=== PATIENT | female | born 1970 | race Caucasian/White ===

== ENCOUNTER → 2023-08-16 15:04 | Outpatient (REF) | payer OTHER, SELFPAY | LOC: HWWDC 15:04 | PROVIDERS: ATTENDING PHYSICIAN Obstetrics & Gynecology; FAMILY PHYSICIAN Nurse Practitioner Adult Health | DX: Z12.31 Encounter for screening mammogram for malignant neoplasm of breast (principal) | CPT/HCPCS: 77063; 77067 ==

== ENCOUNTER → 2023-08-26 11:23 | Outpatient (REF) | payer OTHER, SELFPAY | LOC: HWRAD 11:23 | PROVIDERS: ATTENDING PHYSICIAN Obstetrics & Gynecology; FAMILY PHYSICIAN Family Medicine | DX: N95.0 Postmenopausal bleeding (principal) | CPT/HCPCS: 76830; 76856 ==

== ENCOUNTER → 2023-08-29 09:04 | Outpatient (REF) | payer OTHER, SELFPAY | LOC: WDC 09:04 | PROVIDERS: ATTENDING PHYSICIAN Obstetrics & Gynecology; FAMILY PHYSICIAN Nurse Practitioner Adult Health | DX: R92.8 Other abnormal and inconclusive findings on diagnostic imaging of breast (principal) | CPT/HCPCS: 76642 ==

== ENCOUNTER → 2023-09-14 13:47 | Outpatient (REF) | payer OTHER, SELFPAY | LOC: WDC 13:47 | PROVIDERS: ATTENDING PHYSICIAN Registered Nurse | DX: N64.4 Mastodynia (principal) | CPT/HCPCS: 76642 ==

== ENCOUNTER → 2024-03-13 12:54 | Outpatient (REF) | payer SELFPAY | LOC: HWRAD 12:54 | PROVIDERS: ATTENDING PHYSICIAN Registered Nurse | DX: E78.2 Mixed hyperlipidemia (principal) | CPT/HCPCS: 75571 ==

== ENCOUNTER → 2024-05-15 09:08 | Outpatient (REF) | payer OTHER, SELFPAY | LOC: RCS 09:08 | PROVIDERS: ATTENDING PHYSICIAN Pediatrics | DX: I25.10 Atherosclerotic heart disease of native coronary artery without angina pectoris (principal) | CPT/HCPCS: 93017; 93350 ==

== ENCOUNTER 2024-06-26 13:45 | Emergency (ER) | payer SELFPAY ==
[2024-06-26 13:50] VITALS: BP 164/108
--- NOTE | 2024-06-26 14:13 | ED.GENMED ---
History of Present Illness
General
Chief Complaint: Head Injury
Source: patient
Exam Limitations: none
Time Seen by Provider: 06/26/24 14:06
Nursing documentation reviewed up to this point in time: agreed with
History of Present Illness
History of Present Illness:
Patient is a 53-year-old female who presents to the ER for evaluation. Patient reports this morning she was bending over and hit the top of her head on a car door. She denies loss of consciousness. She did feel woozy afterward however denies
nausea vomiting headache. She does report that her head feels sore. She is not on blood thinners. Denies any neck pain. No other complaints.
Review of Systems
Review of Systems
Allergies reviewed?: Yes
All Other Systems: ROS reviewed and negative except as documented in HPI and ROS
Constitutional: Reports no symptoms; Denies fever, fatigue or chills
Respiratory: Reports no symptoms
Cardiac: Reports no symptoms
ABD/GI: Denies nausea or vomiting
Musculoskeletal: Reports no symptoms and other (head feels sore ); Denies neck pain or back pain
Skin: Reports no symptoms
Neurological: Reports other (no loc ); Denies dizzy, headache or numbness
Psychiatric: Reports no symptoms
Phy Exam
General Physical Exam
General Presentation: no apparent distress
General age: appears stated age
General Skin: warm and dry
General Habitus: normal
General Mental: alert
General Hydration: appears well hydrated
Eye Exam
Eye Exam: PERRL and EOMI
Eye Exam General: PERRL: bilateral and EOM intact: bilateral
Pupil Exam: Bilateral: round and reactive
Neurological Exam
Neurological Exam: alert and oriented x3
Musculoskeletal Exam
Musculoskeletal Exam: full ROM and other (no step offs to scalp no hematoma no abrasions )
Skin Exam
Skin Exam: normal color and warm/dry
Psychiatric Exam
Psychiatric Exam: normal mood/affect
Course
Orders/Labs/Results
Orders:
Orders
06/26/24 13:54
CT Head W/o Iv Contrast Urgent
Comment:
Reason For Exam: hit on head by car door
06/26/24 14:14
Vital Signs- Treatment ONCE
Frequency: Once
Vital Signs
Initial and Last Documented VS:
Initial Vital Signs
Temp Pulse Resp BP Pulse Ox
98.2 F 92 16 164/108 100
06/26/24 13:50 06/26/24 13:50 06/26/24 13:50 06/26/24 13:50 06/26/24 13:50
Last Documented Vital Signs
Temp Pulse Resp BP Pulse Ox
98.2 F 92 18 137/84 100
06/26/24 13:50 06/26/24 13:50 06/26/24 15:03 06/26/24 15:03 06/26/24 13:50
MDM/Problems Addressed
Differential Diagnosis Includes:
Not limited to skull fracture, less likely intracranial injury
MDM/Problems Addressed:
Symptoms are likely contusion.
patient is in no acute distress no headache or nausea vomiting now no palpable step-offs. No blood thinners. Leg contusion. Plan for discharge home with CAT scan negative.
*Pulse Oximetry
Patient hypoxic: no
*Critical Care Note
Total Time (30-74mins, 75-104mins- exclusive of procedures): Not Applicable
ED Attending Note
-
Portions of this chart may have been created with voice recognition software.� Occasional wrong word or��sound alike� substitutions may have occurred due to the inherent limitations of voice recognition software.
Discharge Plan
Departure
Patient Disposition: Home (Routine Discharge)
Date of Disposition: 06/26/24
Time of Disposition: 15:18
Patient with high blood pressure during this ER visit?: Yes
Discharge Problem:
Head injury, acute
Instructions: Head Injury in Adults (DC), Contusion (DC), BLOOD PRESSURE
Prescriptions:
No Action
cyanocobalamin (vitamin B-12) [Vitamin B-12] 1,000 MCG/ML solution
1,000 mcg IM MONTHLY
levothyroxine [Synthroid] 200 MCG tablet
200 mcg PO DAILY
olmesartan 20 MG tablet
20 mg PO DAILY
Referrals:
UNKNOWN - PT DOES,NOT KNOW [Family Provider] -
Activity Restrictions/Additional Instructions:
Ice the affected area for the next 24 hours 20 minutes at a time several times a day. Tylenol ibuprofen as needed. Follow-up with family doctor in the next several days. Return if any worsening of symptoms.
Interventions
Interventions:
*General Assessment Last Done: 06/26/24 14:56
ED- Fall Risk Assessment Last Done: 06/26/24 14:56
*ED COVID-19 Vaccine History Last Done: 06/26/24 14:56
*Nursing Disposition Last Done: 06/26/24 15:36
ED- Neurological Assessment Last Done: 06/26/24 14:56
ED-Skin Assessment Last Done: 06/26/24 14:56
Discharge Date and Time
Discharge Date/Time: 06/26/24 15:36
Print Language: VENEZUELAN
[2024-06-26 14:56] VITALS: BMI 29.5
[2024-06-26 15:03] VITALS: BP 137/84
== END 2024-06-26 15:36 | disposition home or self-care (01) ==
LOC: EMR 13:45
PROVIDERS: EMERGENCY PHYSICIAN Emergency Medicine
DX: S09.90XA Unspecified injury of head, initial encounter (principal); W22.09XA Striking against other stationary object, initial encounter
CPT/HCPCS: 99284; 70450

== ENCOUNTER → 2025-01-09 14:03 | Outpatient (REF) | payer OTHER, SELFPAY | LOC: RCS 14:03 | PROVIDERS: ATTENDING PHYSICIAN Internal Medicine Cardiovascular Disease | DX: R00.2 Palpitations (principal) | CPT/HCPCS: 93225; 93226 ==